=== PATIENT | male | born 1970 | race Caucasian/White ===

== ENCOUNTER 2017-08-12 10:56 | Emergency (ER) | payer OTHER, SELFPAY ==
[~2017-08-12] VITALS: Ht 180.3 cm; Wt 98.0 kg
[2017-08-12 11:09] VITALS: BP 137/90
[2017-08-12] MEDS ORDERED: IBUP200T49 PO (11:15)
== END 2017-08-12 11:38 | disposition home or self-care (01) ==
LOC: ED 11:15
DX: S46.911A Strain of unspecified muscle, fascia and tendon at shoulder and upper arm level, right arm, initial encounter (principal); S43.101A Unspecified dislocation of right acromioclavicular joint, initial encounter; W01.0XXA Fall on same level from slipping, tripping and stumbling without subsequent striking against object, initial encounter; Y93.89 Activity, other specified; Y92.89 Other specified places as the place of occurrence of the external cause; Y99.8 Other external cause status
CPT/HCPCS: 99284

== ENCOUNTER 2019-07-12 08:47 | Outpatient (CLI) | payer OTHER ==
[~2019-07-12 08:47] MED LIST: IBUP200T49 PO
== END 2019-07-12 23:59 | disposition home or self-care (01) ==
LOC: CARD 08:47
PROVIDERS: ATTEND Student in an Organized Health Care Education/Training Program
DX: G61.82 Multifocal motor neuropathy (principal)
CPT/HCPCS: 95886; 95908